=== PATIENT | female | born 1965 | race Caucasian/White ===

== ENCOUNTER → 2016-12-16 | Outpatient (CLI) | payer OTHER ==
[~2016-12-16] MED LIST: DIAMOX PO; FISH OIL 1,001000 M1 PO; FLOMAX0.4 MG PO; HERCEPTIN; IMODIUM A-D1 MG/5 ML PO; K-DUR10 ME1 PO; NAPROSYN500 MG PO; NEURONTIN 300300 M1 PO; NOLVADEX10 MG PO; NORCO 5-325 TA1 EACH PO; PREVACID30 MG PO; XANAX 0.5 MG0.5 M1 PO
== END ==
LOC: RAD 14:14
DX: N20.0 Calculus of kidney (principal); R10.9 Unspecified abdominal pain

== ENCOUNTER → 2017-07-20 | Outpatient (CLI) | payer OTHER | LOC: RAD 16:47 | DX: R07.9 Chest pain, unspecified (principal); N20.0 Calculus of kidney ==

== ENCOUNTER → 2019-09-09 | Outpatient (CLI) | payer BC, OTHER | LOC: RAD 11:10 | DX: N20.0 Calculus of kidney (principal); R05 Cough ==